=== PATIENT | male | born 1955 | race Two or more races ===

== ENCOUNTER → 2023-01-02 | Outpatient (CLI) | payer OTHER ==
[~2023-01-02] MED LIST: AMLO-258 PO; ATOR20TA86 PO; CALC0.2521 PO; CHOL25TA4 PO; FERR325T27 PO; FURO40 PO; SODI10PO2 PO; SODI650T33 PO
== END | disposition home or self-care (01) ==
LOC: RADPV 08:36
PROVIDERS: ATTEND Hospitalist
DX: I65.21 Occlusion and stenosis of right carotid artery (principal); R09.89 Other specified symptoms and signs involving the circulatory and respiratory systems; R42 Dizziness and giddiness
CPT/HCPCS: 93880